=== PATIENT | female | born 1955 | race African-American/Black ===

== ENCOUNTER → 2017-11-18 | Outpatient (CLI) | payer OTHER ==
[~2017-11-18] MED LIST: FLEXERIL PO; FUROSEMIDE 20 M20 M1 PO; IBUPROFEN 800800 MG PO; LISINOPRIL20 MG PO; MAGNESIUM400 MG PO; PERCOCET 5-3251 EACH PO; PERCOCET PO; POTASSIUM20 PO
== END ==
LOC: RAD 14:29
DX: Z12.31 Encounter for screening mammogram for malignant neoplasm of breast (principal)

== ENCOUNTER → 2018-11-30 | Outpatient (CLI) | payer OTHER | LOC: RAD 15:27 | DX: Z12.31 Encounter for screening mammogram for malignant neoplasm of breast (principal) ==

== ENCOUNTER → 2020-01-21 | Outpatient (CLI) | payer OTHER | LOC: BC 13:22 | PROVIDERS: ATTEND Family Medicine | DX: Z12.31 Encounter for screening mammogram for malignant neoplasm of breast (principal) ==

== ENCOUNTER → 2020-04-08 | Outpatient (CLI) | payer OTHER | LOC: RAD 13:48 | PROVIDERS: ATTEND Family Medicine | DX: J70.5 Respiratory conditions due to smoke inhalation (principal) ==